=== PATIENT | male | born 1950 | race Caucasian/White ===

== ENCOUNTER 2016-04-19 19:52 | Emergency (ER) | payer MEDICARE, OTHER ==
[2016-04-19 20:58] LABS: BASOPHILS 0.1 % (0.0-2.0); EOSINOPHILS 0.1 % (0-7); HEMATOCRIT 44.1 % (42.0-54.0); HEMOGLOBIN 15.1 g/dL (13.5-17.5); IMMATURE GRANULOCYTES 0.4 % (0-5); LYMPHOCYTES 10.6 % (15-50); MCH 31.3 pg (26.0-34.0); MCHC 34.2 g/dL (31.0-37.0); MCV 91.5 fL (80.0-100.0); MEAN PLATELET VOLUME 10.3 fL (7.4-10.4); MONOCYTES 5.2 % (2-11); NEUTROPHILS 83.6 % (40-80); RBC 4.82 10x6/uL (4.20-6.10); RDW 13.2 % (11.5-14.5)
[2016-04-19 21:03] LABS: PLATELET COUNT 187 10x3/uL (130-400)
[2016-04-19 21:15] LABS: ALBUMIN 3.6 g/dL (3.4-5.0); ALKALINE PHOSPHATASE 91 U/L (46-116); ALT (SGPT) 50 U/L (10-68); CALC OSMOLALITY 274 mosm/kg (275-300); CALCIUM 8.8 mg/dL (8.5-10.1); CARBON DIOXIDE 28.5 mmol/L (21.0-32.0); CHLORIDE - SERUM 100 mmol/L (98-107); CREATININE - SERUM 1.1 mg/dL (0.6-1.3); GLUCOSE 106 mg/dL (74-106); POTASSIUM - SERUM 4.1 mmol/L (3.5-5.1); PROTEIN - SERUM 7.4 g/dL (6.4-8.2); SODIUM 137 mmol/L (136-145); UREA NITROGEN 16 mg/dL (7-18); eGFR NON AFRICAN AMERICAN 71 mL/min (90-120)
[2016-04-19 21:20] LABS: AMYLASE - SERUM 34 U/L (25-115); C-REACTIVE PROTEIN 5.1 mg/dL (0.0-0.9); CREATINE KINASE 159 UL (21-232); LIPASE 124 U/L (73-393); PRO BNP 128 pg/mL (0-125); TROPONIN-I < 0.017 ng/mL (0.000-0.060)
[2016-05-01 11:19] LABS: F. TULARENSIS - IGG Negative (())
[2016-05-20 20:17] LABS: A. PHAGOCYTOPHILIUM PCR Negative (Negative); F. TULARENSIS - IGM Negative (()); RMSF IGM 0.15 index (0.00-0.89)
== END 2016-04-19 22:05 | disposition home or self-care (01) ==
LOC: D.ER 19:52
PROVIDERS: Emergency Medicine; Family Medicine
DX: B34.9 Viral infection, unspecified (principal); I44.60 Unspecified fascicular block